=== PATIENT | female | born 1955 ===

== ENCOUNTER 2023-03-13 13:36 | Emergency (ER) | payer MEDICARE, OTHER ==
[~2023-03-13] VITALS: Ht 170.2 cm; Wt 95.7 kg
[2023-03-13 13:45] VITALS: BP 132/81
== END 2023-03-13 17:50 ==
LOC: EMS 13:37
DX: I46.9 Cardiac arrest, cause unspecified (principal); I11.0 Hypertensive heart disease with heart failure; I50.9 Heart failure, unspecified; I48.91 Unspecified atrial fibrillation; F03.90 Unspecified dementia, unspecified severity, without behavioral disturbance, psychotic disturbance, mood disturbance, and anxiety; J44.9 Chronic obstructive pulmonary disease, unspecified; F32.A Depression, unspecified; G43.909 Migraine, unspecified, not intractable, without status migrainosus; Z86.14 Personal history of Methicillin resistant Staphylococcus aureus infection
CPT/HCPCS: 99291; Z7502